=== PATIENT | male | born 1985 | race African-American/Black ===

== ENCOUNTER 2017-02-22 10:20 | Emergency (ER) | payer BC ==
[~2017-02-22] VITALS: Ht 170.2 cm; Wt 68.0 kg
[~2017-02-22 10:20] MED LIST: BACTRIM DS TABL1 TAB PO; VIBRAMYCIN100 M1 PO
== END 2017-02-22 11:15 | disposition home or self-care (01) ==
LOC: CED 10:20
DX: N34.2 Other urethritis (principal); F17.200 Nicotine dependence, unspecified, uncomplicated; Z88.8 Allergy status to other drugs, medicaments and biological substances
CPT/HCPCS: 96372; 99283; J0696